=== PATIENT | male | born 1950 | race Hispanic/Latino ===

== ENCOUNTER → 2018-03-11 | Day surgery (SDC) | payer BC ==
[2018-03-04 15:25] LABS: BASOPHILS % 0.4 % (0.0-1.0); EOSINOPHILS % 0.1 % (0.0-6.0); HEMOGLOBIN 15.5 g/dL (14.0-18.0); LYMPHOCYTES # (AUTO) 2.2 (1.0-3.2); LYMPHOCYTES % 27.1 % (18.0-39.1); MEAN CORPUSCULAR HEMOGLOBIN 30.9 pg (28-32); MEAN CORPUSCULAR HGB CONC 34.4 g/dL (31-35); MEAN CORPUSCULAR VOLUME 89.6 fL (81-99); MONOCYTES # (AUTO) 0.5 (0.2-0.8); MONOCYTES % 6.3 % (4.4-11.3); NEUTROPHILS # (AUTO) 5.4 (2.1-6.9); PLATELET COUNT 136 x10e3/uL (140-360); RED BLOOD COUNT 5.02 x10e6/uL (4.3-5.7); RED CELL DISTRIBUTION WIDTH 12.1 % (11.7-14.4)
[~2018-03-11] MED LIST: ALLOPURINOL100 MG PO; ATORVASTATIN CA10 MG PO; FENTANYL CITRATE/PF 100MCG/2 ML INJ ONE; HYOSCYAMINE SULFATE 0.5 MG/ML INJ ONE; LIDOCAINE HCL 2% LOCAL INJ 5 ML SDV VIAL INJ ONE; LISINOPRIL10 MG PO; MIDAZOLAM HCL 2 MG/2 ML VIAL ONE; PROPOFOL IV EMULSION 10 MG/ML 50 ML VIAL ONE
--- OUTSIDE RECORDS SUMMARY | 2018-03-11 07:11 | XMS REPORT ---
Author Author [facility] Address Unknown Phone Unavailable Care Team Providers Care Hand Packer Name Role Phone Unavailable Unavailable Problems This patient has no known problems. Allergies, Adverse Reactions, Alerts This patient has no known allergies or adverse reactions. Medications This patient has no known medications. Results Test Description Test Time Test Comments Text Results Atomic Results Result Comments CR - XRAY CERVICAL XR 4 or 5 VIEWS 2017-10-20 12:17:23 CLINICAL INDICATION: M54.2 CervicalgiaFINDINGS:COMPARISON: NoneReversal of the normal cervical lordosis is present.Vertebral heights are well maintained.Narrowing of the C3- C4, C4-C5, C5-C6 and C6-C7 discs is present. Spondylotic spurring is noted at these levels.The facet joints are hypertrophic. There are no fractures, dislocations, or subluxations. The prevertebral soft tissues are normal.Small bony osteophytes impinge upon the neural foramina at C4-C5, C5-C6 and C6-C7. The osteophytes in the left C6-C7 foramen is large. There is also a small left-sided C3-C4 neural foraminal osteophyte.No change since prior exam.IMPRESSION:C4-C7 spondylosis CR - XRAY LUMBAR XR MIN OF 4 VIEWS 2017-10-20 12:04:11 CLINICAL INDICATION: M54.5 Low back painFINDINGS:COMPARISON STUDY: NoneFive lumbar-type vertebral bodies are present.Grade 1 L5-S1 spondylolisthesis with spondylolysis is present. There has been an L5-S1 laminectomy.Alignment is otherwise normal. No fracture.Metallic intervertebral disc spacers present in the L5-S1 disc. Other discs are normal.Surgical clips are present within the epigastrium.IMPR ESSION:One. L5-S1 laminectomy.Two. L5 - S 1 grade 1 spondylolisthesis with spondylolysis.Three. L5 - S1 metallic intervertebral disc spacer present. MRI THORACIC WO/W CLINICAL INDICATION: G95.9 Disease of spinal cord, unspecified back pain and bilateral arm numbnessMODALITY: [employer]o 1.5 Flor 18 channel MRITECHNIQUE: Multiplanar SE and FSE evaluation of the thoracic region was performed with and without contrast enhancement. Eight ml of gadolinium were administered intravenously.IMPRESSION:1. Thoracic cord and intradural extramedullary space unremarkable.2. Moderate to marked disc degeneration and spondylosis at T6-7 with disc degeneration elsewhere and thoracic spine as described below3. Several levels show small posterior disc osteophyte complexes without cord compression or significant canal stenosis at any level.FINDINGS:COMPARISON: noneThoracic cord and intradural extramedullary space are within normal limits. No abnormal contrast enhancement within the cord are intradural extramedullary space seen.Moderate to marked disc degeneration and spondylosis noted at T6-7 with mild to moderate disc degeneration and spondylosis T3-4 through T5-6 and T7-8. Multilevel endplate irregularity/Schmorl s node formation.No vertebral body compression.No pathologic marrow infiltrative process.No paraspinal soft tissue mass.FINDINGS AT SPECIFIC LEVELS:T1-2: Unremar kableT2-3: Minimal one - 2 mm right post lateral disc osteophyte complex without neural mass effect cord compression or central canal stenosis.T3-4: Two - 3 mm posterior rightward lateralizing disc osteophyte complex without neural mass effect, cord compression or canal stenosis.T4-5: UnremarkableT5-6: UnremarkableT6-7: 3 mm posterior disc osteophyte complex abuts are mildly encroaches upon ventral cord without cord compression. Only mild narrowing subarachnoid space.T7-8: Two - 3 mm posterior disc osteophyte complex, more pronounced to the right abuts ventral cord without cord compression or signif icant canal stenosis.T8-9: UnremarkableT9-10: Minimal one - 2 mm posterior disc osteophyte complex does not effect cord. No significant canal stenosis.T10-11: Minimal one - 2 mm posterior disc osteophyte complex does not effect cord. No significant canal stenosis.T11-12: [id number]: UnremarkableMultilevel facetal arthrosis noted. NM BONE SPECT SCAN CLINICAL INDICATION: M50.30 Other cervical disc degeneration, unsp cervical ycyituV29.20 Other cervical disc displacement, unsp cervical regionMODALITY: [employer] gamma cameraTECHNIQUE: 25 mCi Tc 99m MDP are injected IV. After a suitable time delay, whole body imaging images were obtained. SPECT imaging of the lumbar spine is performed with computer and physician-assisted 2-D and 3-D reconstruction.FINDINGS:COMPARISON: Cervical spine series, complete:Straightening of the expected cervical lordosis is demonstrated. Mild C3-4, mild C4-5, moderate C5-6 and moderate C6-7 disc space narrowing are observed. Mild posterior osteophyte formation is demonstrated at C4-5, C5-6, C6-7. Remote avulsion of the C7 spinous process is demonstrated, well corticated. No measurable subluxation. No evidence of dynamic instability.Symmetric bilateral renal function is observed.Mild to moderate uptake is demonstrated within the maxilla bilaterally. No significant mandible activity.Mild to moderate arthritic uptake is noted at the acromioclavicular and glenohumeral joints bilaterally. Mild symmetric sternoclavicular uptake is seen. Note is made of a left total knee. Mild to moderate bilateral patellofemoral activity is present. There is mild to moderate symmetric increased uptake seen at the SI joint.SPECT imaging of the cervical spine is reviewed. Mild to moderate intervertebral disc uptake is most prominent at C4-5 and C5-6. No significantly increased facet localization is observed.IMPRESSION:See comments above.PQRS 147: 3570F CERVICAL XR COMP OBL/FLEX/EXT 6 VIEWS OR > CLINICAL INDICATION: M99.71 Conn tiss and disc stenosis of intvrt foramin of cerv regionFINDINGS:COMPARISON: NoneSeven views of the cervical spine were obtained.Straightening of cervical lordosis is evident. There is slight upper cervical dextroscoliosis. Moderate anterior spondylosis involves the C3-C7 levels. Mild posterior spondylosis is evident at the C fourth through C7 levels. Mild multilevel bilateral cervical facet arthropathy is seen. No dynamic instability is appreciable on flexion/extension views.IMPRESSION:1. Multilevel spondylosis and facet arthrosis.2. Slight upper cervical dextroscoliosis and straightening of cervical lordosis.3. No dynamic instability is evident on flexion/extension views.
--- OUTSIDE RECORDS SUMMARY | 2018-03-11 07:11 | XMS REPORT | Clinical Summary ---
[facility] Address Unknown Phone Unavailable Care Team Providers Care Parent Coach Name Role Phone PCP Unavailable Allergies Not on File Medications Not on file Active Problems Not on file Social History Date Tobacco Use Types Packs/Day Years Used Never Assessed Sex Assigned at Date Recorded Not on file Industry Job Start Date Occupation Not on file Not on file Not on file Travel End Travel History Travel Start No recent travel history available. Last Filed Vital Signs Not on file Plan of Treatment Not on file Results Not on fileafter 03/10/2017 Insurance Payer Benefit Subscriber ID Type Phone Address Plan / Group AETNA - MGD CARE AETNA OPEN xxxxxxxxxx HMO/POS ACCESS HMO NAP
--- OUTSIDE RECORDS SUMMARY | 2018-03-11 07:11 | XMS REPORT | Clinical Summary ---
Author Author [facility] Address Unknown Phone Unavailable Care Team Providers Care Sorter [employer] Name Role Phone Ronny Howard MD PCP Allergies No Known Allergies Medications End Date Status Medication Sig Dispensed Refills Start Date Active lisinopril 0 (PRINIVIL,ZESTRIL) 20 mg 7 tablet Active allopurinol (ZYLOPRIM) 0 100 MG tablet 7 Active atorvastatin (LIPITOR) 10 0 MG tablet 7 Active testosterone enanthate INJECT 0.25 1 (DELATESTRYL) 200 mg/mL ML PO TWICE A 7 injection WEEK UTD Active promethazine (PHENERGAN) TK 1 T PO Q 1 25 MG tablet 4 H PRN FOR 7 NAUSEA Active aspirin (ECOTRIN) 81 MG TK 1 T PO D 0 enteric coated tablet 7 Active fluticasone (FLONASE) 50 SHAKE LQ AND 0 mcg/actuation nasal spray U 1 SPR IEN D 7 Active ibuprofen (ADVIL,MOTRIN) TK 1 T PO Q 8 0 600 MG tablet H PRF PAIN 7 02/17/2018 Discontinued meclizine (ANTIVERT) 25 TK 1 T PO QD 3 mg tablet PRN 7 02/17/2018 Discontinued lidocaine (LIDODERM) 5 % APPLY 2 0 PATCHES TO 7 THE SKIN DAILY 02/17/2018 Discontinued TRANSDERM-SCOP 1.5 mg (1 APPLY ONE 0 mg over 3 days) PATCH TO THE 7 SKIN ONCE 02/17/2018 Discontinued methocarbamol (ROBAXIN) TK 1 T PO Q 0 750 MG tablet 8 H PRN MAX 7 3/DAY 02/17/2018 Discontinued traMADol (ULTRAM) 50 mg Take 50 mg by 0 tablet mouth every 6 (six) hours as needed for moderate pain. Active Problems Problem Noted Date Concussion with loss of consciousness <=30 min 10/09/2016 Cervical strain, acute 10/09/2016 Acute pain of right shoulder 10/09/2016 Vertigo due to brain injury 10/09/2016 Chronic cervical pain 10/09/2016 Encounters Care Team Description Date Type Specialty Champ Stiles MD CERIVAL EPIDURAL STEROID INJECTION C6-7 02/17/2018 Surgery General Surgery Johnson Meadows MD 02/17/2018 Anesthesia General Surgery Event Champ Stiles MD 02/17/2018 Hospital General Surgery Encounter Marlyn Carlson MD 09/30/2017 Anesthesia Event Champ Stiles MD CERVICAL INTERLAMINAR INJECTION C6-7 09/30/2017 Surgery Champ Stiles MD 09/30/2017 Hospital Encounter after 03/10/2017 Family History Medical History Relation Name Comments Heart disease Father Diabetes Mother Relation Name Status Comments Father Mother Social History Date Tobacco Use Types Packs/Day Years Used Never Smoker Smokeless Tobacco: Never Used Alcohol Use Drinks/Week oz/Week Comments Yes 1 drink once a month Sex Assigned at Date Recorded Not on file Industry Job Start Date Occupation Not on file Not on file Not on file Travel End Travel History Travel Start No recent travel history available. Last Filed Vital Signs Time Taken Vital Sign Reading 02/17/2018 9:41 AM FILM CLEANER Blood Pressure 134/85 02/17/2018 9:41 AM FILM CLEANER Pulse 65 02/17/2018 9:08 AM FILM CLEANER Temperature 36.1 C (97 F) 02/17/2018 9:41 AM FILM CLEANER Respiratory Rate 15 02/17/2018 9:41 AM FILM CLEANER Oxygen Saturation 96% - Inhaled Oxygen - Concentration 02/17/2018 7:47 AM FILM CLEANER Weight 87.3 kg (192 lb 6 oz) 02/17/2018 7:47 AM FILM CLEANER Height 175.3 cm (5' 9") 02/17/2018 7:47 AM FILM CLEANER Body Mass Index 28.41 Plan of Treatment Health Maintenance Due Date Last Done Comments COLON CANCER SCREENING 2002 SHINGLES VACCINES (1 of 2002 2) PNEUMOCOCCAL 2017 POLYSACCHARIDE VACCINE AGE 65 AND OVER PNEUMOCOCCAL-13 2017 INFLUENZA VACCINE 10/15/2017 Procedures Comments Procedure Name Priority Date/Time Associated Diagnosis INJECTION, ANESTHETIC 02/17/2018 CHRONIC PAIN, AGENT, FACET JOINT, 9:55 AM FILM CLEANER RADICULOPATHY, LUMBAGO CERVICOTHORACIC, 2 LEVELS Special Needs C-ARM XR CERVICAL SPINE 2 OR 3 Routine 02/17/2018 VW 9:04 AM FILM CLEANER OR FL < 1 HOUR Routine 02/17/2018 9:04 AM FILM CLEANER ECG PRE/POST OP STAT 02/17/2018 7:34 AM FILM CLEANER HEMOGLOBIN & HEMATOCRIT STAT 02/17/2018 7:33 AM FILM CLEANER OR [place] < 1 HOUR Routine 09/30/2017 7:50 AM CDT INJECTION, STEROID, 09/30/2017 CERVICALGIA, CERVICAL SPINE, LUMBAR, EPIDURAL, 7:15 AM CDT DISC DISORDERS SINGLE M54.2, M50.323, M50.322, M50.321 after 03/10/2017 Results * OR [place] < 1 Hour (02/17/2018 9:04 AM FILM CLEANER) Only the most recent of 2 results within the time period is included. Narrative Performed At EXAMINATION:[place] 1 HOUR [facility] C-arm fluoroscopy was requested in OR.FLUORO TIME 0:23 IMPRESSION: Separate operative report will be issued by the physician performing the procedure. [id number] Procedure Note Interface, Radiology Results Incoming - 02/17/2018 9:34 AM FILM CLEANER EXAMINATION: [place] 1 HOUR C-arm fluoroscopy was requested in OR. FLUORO TIME 0:23 IMPRESSION: Separate operative report will be issued by the physician performing the procedure. [id number] Performing Organization Address City/State/Zipcode Phone Number [facility] [address] [place] [address] * XR Cervical Spine 2 Or 3 Vw (02/17/2018 9:04 AM FILM CLEANER) Narrative Performed At EXAMINATION:XR CERVICAL SPINE 2 OR 3 VW [facility] CLINICAL HISTORY: IMPRESSION: 3 portable radiographs of the cervical spine were obtained in the operative room during the performance of cervical epidural steroid injection. For further details, please refer to the operative note. [id number] Procedure Note Hm Interface, Radiology Results Incoming - 02/19/2018 1:20 PM FILM CLEANER EXAMINATION: XR CERVICAL SPINE 2 OR 3 VW CLINICAL HISTORY: IMPRESSION: 3 portable radiographs of the cervical spine were obtained in the operative room during the performance of cervical epidural steroid injection. For further details, please refer to the operative note. [id number] Performing Organization Address [facility] Phone Number [facility] [address] [place] [address] * ECG Pre/Post Op (02/17/2018 7:34 AM FILM CLEANER) Ventricular rate 61 H MUSE Atrial rate 61 HM MUSE AR interval 182 HM MUSE QRSD interval 92 HM MUSE QT interval 408 HM MUSE QTC interval 410 HM MUSE P axis 1 47 [facility] MUSE QRS axis 1 -4 HM MUSE T wave axis 11 [facility] EKG impression Normal sinus rhythm-Normal [facility] ECG-In automated comparison with ECG of 30-SEP-2017 06:28,-No significant change was found- Narrative Performed At Performing Organization Address [facility] Phone Number [facility] [address] [place] [address] * Hemoglobin & hematocrit (02/17/2018 7:33 AM FILM CLEANER) HGB 16.1 14.0 - 18.0 g/dL [facility] HCT 46.9 41.0 - 51.0 % [facility] Specimen Blood Performing Organization Address [facility] [place] [address] [place] [address] PATHOLOGY AND GENOMIC MEDICINE [facility] [address] [place] [address] [facility] after 03/10/2017 Insurance Payer Benefit Subscriber ID Type Phone Address Plan / Group BCBS BCBS OUT xxxxxxxxxxxx PPO OF STATE Advance Directives Patient has advance care planning documents on file. For more information, kami thomas contact: Diogenes Gloria [address] [place] [address]
[2018-03-11 09:15] VITALS: BP 111/84
--- NOTE | 2018-03-11 09:34 | Operative Report ---
DATE OF PROCEDURE: March 11, 2018 REFERRING PHYSICIAN: Dr. Richard Roca PROCEDURES PERFORMED 1. Esophagogastroduodenoscopy with biopsies. 2. Colonoscopy with polypectomy and biopsies. INDICATIONS FOR EGD: Dyspepsia. INDICATIONS FOR COLONOSCOPY: Surveillance colonoscopy and personal history of colon polyps. MEDICATION: Patient was done under MAC. Please see anesthesiologist's note. PROCEDURE: With the patient in the left lateral decubitus position, the flexible fiberoptic Olympus gastroscope was introduced into the esophagus under direct visualization without any difficulty. There was some patchy erythema noted in the distal esophagus. The scope was then advanced with ease into the stomach. Mucosa overlying the antrum of the body revealed some patchy erythema and mild to moderate edema, and biopsies were obtained and sent to stain for H. pylori. The pylorus was intubated with ease. The scope was advanced all the way to the 2nd portion of the duodenum. There were some scalloped folds noted in the 2nd portion of the duodenum. Biopsies were obtained, as well as biopsies were obtained from the duodenal bulb to rule out sprue. The scope was then withdrawn back into the stomach and retroflexed. The mucosa overlying the fundus and the cardia appeared to be within normal limits. The scope was then straightened out. It was subsequently withdrawn. Patient tolerated the procedure well. IMPRESSION 1. Distal esophagitis, mild. 2. Gastritis, biopsied. Biopsies sent to stain for Helicobacter pylori. 3. Rule out sprue. PLAN: Follow up histology. Initiate Protonix 40 mg 1 p.o. q.a.m. a.c. Patient was then turned around. After adequate lubrication of the anal canal, a flexible fiberoptic Olympus colonoscope was inserted into the rectum with ease and advanced all the way to the cecum. The scope was then withdrawn slowly. Mucosa overlying the cecum and ascending colon appeared to be within normal limits. An minute ulcer was noted in the transverse colon with normal surrounding mucosa that was biopsied. A minute polyp was hot biopsied from the descending colon. Diverticular disease was noted to involve the sigmoid colon. One minute hyperplastic appearing polyp was hot biopsied from the rectum. The scope was then retroflexed into the distal rectum and small internal hemorrhoids were noted, none of which was actively bleeding. The scope was then straightened out. It was subsequently withdrawn. Patient tolerated the procedure well. IMPRESSION 1. Minute ulcer, transverse colon, biopsied. 2. Descending colon polyp, hot biopsied. 3. Diverticulosis. 4. Rectal polyp, minute, hyperplastic appearing, hot biopsied. 5. Internal hemorrhoids, none actively bleeding. PLAN: Follow up histology. Initiate high-fiber and low-fat diet. Initiate high-fiber supplement. Patient might benefit from a followup colonoscopy in 3-5 years. Job#: [id number] [place] cc:MACIEL ROCA DO
== END | disposition home or self-care (01) ==
LOC: OR 07:09
PROVIDERS: ATTEND Internal Medicine Gastroenterology
DX: K29.70 Gastritis, unspecified, without bleeding (principal); K63.5 Polyp of colon; K62.1 Rectal polyp; K52.9 Noninfective gastroenteritis and colitis, unspecified; K20.9 Esophagitis, unspecified; K57.30 Diverticulosis of large intestine without perforation or abscess without bleeding; K64.8 Other hemorrhoids; I10 Essential (primary) hypertension; E78.5 Hyperlipidemia, unspecified; M54.9 Dorsalgia, unspecified; Z01.810 Encounter for preprocedural cardiovascular examination; Z01.812 Encounter for preprocedural laboratory examination; Z98.1 Arthrodesis status; Z96.652 Presence of left artificial knee joint
CPT/HCPCS: 36415; 43239; 45380; 45384; 85025; 93005; J1980; J2001; J2250

== ENCOUNTER → 2022-06-29 | Day surgery (SDC) | payer BC ==
[2022-06-20 15:42] LABS: BASOPHILS % 0.4 % (0.0-1.0); EOSINOPHILS # (AUTO) 0.2 (0.0-0.4); EOSINOPHILS % 2.6 % (0.0-6.0); HEMATOCRIT 43.4 % (38.2-49.6); LYMPHOCYTES # (AUTO) 1.8 (1.0-3.2); LYMPHOCYTES % 21.7 % (18.0-39.1); MEAN CORPUSCULAR HEMOGLOBIN 30.2 pg (28-32); MEAN CORPUSCULAR HGB CONC 34.6 g/dL (31-35); MEAN CORPUSCULAR VOLUME 87.3 fL (81-99); MONOCYTES # (AUTO) 0.7 (0.2-0.8); MONOCYTES % 7.8 % (4.4-11.3); NEUTROPHILS # (AUTO) 5.6 (2.1-6.9); NEUTROPHILS % 67.3 % (38.7-80.0); PLATELET COUNT 143 x10e3/uL (140-360); RED BLOOD COUNT 4.97 x10e6/uL (4.3-5.7); RED CELL DISTRIBUTION WIDTH 13.2 % (11.7-14.4)
[~2022-06-29] MED LIST changes: -FENTANYL CITRATE/PF 100MCG/2 ML INJ ONE; +LACTATED RINGER'S 1,000 ML BAG IV ONE; +LACTATED RINGER'S 1,000 ML ONE; +METOCLOPRAMIDE HCL 10 MG/2ML VIAL ONE; -MIDAZOLAM HCL 2 MG/2 ML VIAL ONE; +PROPOFOL IV EMULSION 10 MG/ML 20 ML VIAL ONE; -PROPOFOL IV EMULSION 10 MG/ML 50 ML VIAL ONE; +PROPOFOL IV EMULSION 50 ML IV ONE
[2022-06-29 10:45] VITALS: BP 109/85
== END | disposition home or self-care (01) ==
LOC: OR 12:27
PROVIDERS: ATTEND Internal Medicine Gastroenterology
DX: K29.70 Gastritis, unspecified, without bleeding (principal); D12.0 Benign neoplasm of cecum; D12.2 Benign neoplasm of ascending colon; D12.3 Benign neoplasm of transverse colon; D12.4 Benign neoplasm of descending colon; K26.9 Duodenal ulcer, unspecified as acute or chronic, without hemorrhage or perforation; K20.90 Esophagitis, unspecified without bleeding; K44.9 Diaphragmatic hernia without obstruction or gangrene; K57.30 Diverticulosis of large intestine without perforation or abscess without bleeding; K64.8 Other hemorrhoids; Z71.3 Dietary counseling and surveillance; I10 Essential (primary) hypertension; E78.00 Pure hypercholesterolemia, unspecified; Z88.6 Allergy status to analgesic agent; Z01.810 Encounter for preprocedural cardiovascular examination; Z01.812 Encounter for preprocedural laboratory examination; Z79.899 Other long term (current) drug therapy; Z68.28 Body mass index [BMI] 28.0-28.9, adult; Z98.1 Arthrodesis status
CPT/HCPCS: 36415; 43239; 45380; 45385; 85025; 93005; C9113; J1980; J2001; J2704 ×2; J2765; J7121